=== PATIENT | male | born 1990 | race Asian ===

== ENCOUNTER 2018-12-09 01:40 | Emergency (ER) | payer OTHER ==
[~2018-12-09] VITALS: Ht 172.7 cm; Wt 73.9 kg
--- NOTE | 2018-12-09 01:58 | Emergency Room Report ---
History of Present Illness General Chief Complaint: Headache Source: Patient Present Illness HPI This is a 28-year-old male with no past medical history. He presents with chief complaint of headache. This has been ongoing for over a month. He also has numbness to his arms and now all extremities. No focal deficit. No slurred speech. No nausea no vomiting. No muscle weakness. He had blood work and EKG done 2 weeks ago as an outpatient was negative. No CT head. No MRI or neurology follow-up. Allergies: Coded Allergies: No Known Allergies (Unverified , 12/09/18) Patient History Past Medical History: see triage record, old chart reviewed Past Surgical History: none Pertinent Family History: none Social History: Denies: smoking Immunizations: other Reviewed Nursing Documentation: PMH: Agreed; PSxH: Agreed Nursing Documentation-PMH Past Medical History: No Stated History Review of Systems Eye: Denies: eye pain, blurred vision ENT: Denies: ear pain, nose congestion, throat swelling Respiratory: Denies: cough, shortness of breath Cardiovascular: Denies: chest pain, palpitations Gastrointestinal: Denies: abdominal pain, diarrhea, nausea, vomiting Musculoskeletal: Denies: back pain, joint pain Skin: Denies: rash Neurological: Reports: headache, numbness Endocrine: Denies: increased thirst, increased urine Hematologic/Lymphatic: Denies: easy bruising All Other Systems: negative except mentioned in HPI Physical Exam Vital Signs Date Time Temp Pulse Resp B/P (MAP) Pulse Ox O2 Delivery O2 Flow Rate FiO2 12/09/18 01:41 98.8 87 14 133/89 95 Room Air vitals normal Sp02 EP Interpretation: reviewed, normal General Appearance: well appearing, no apparent distress, alert Head: normocephalic, atraumatic Eyes: bilateral eye PERRL, bilateral eye EOMI ENT: hearing grossly normal, normal pharynx Neck: full range of motion, supple, no meningismus Respiratory: chest non-tender, lungs clear, normal breath sounds Cardiovascular #1: regular rate, rhythm, no murmur Gastrointestinal: normal bowel sounds, non tender, no mass, no organomegaly, no bruit, non-distended Musculoskeletal: back normal, gait/station normal, normal range of motion Psychiatric: mood/affect normal Skin: warm/dry Medical Decision Making Diagnostic Impression: Primary Impression: Headache Qualified Codes: R51 - Headache Additional Impression: Paresthesia ER Course Patient presents with headache and now paresthesia of his extremities. There is no evidence of any bleed or tumor. No evidence of any TIA or CVA. No pathway to indicate this is CVA. This may be multiple sclerosis based on the different neurological complaints. Patient does not appear to be anxious or have psychological issue. No discharge home with follow-up with neurologist for further workup. CT/MRI/US Diagnostic Results CT/MRI/US Diagnostic Results : Imaging Test Ordered: CT head Impression negative per radiologist Last Vital Signs Date Time Temp Pulse Resp B/P (MAP) Pulse Ox O2 Delivery O2 Flow Rate FiO2 12/09/18 01:41 98.8 87 14 133/89 95 Room Air Status: improved Disposition: HOME, SELF-CARE Condition: Stable Scripts Ibuprofen* (MOTRIN*) 600 Mg Tablet 600 MG ORAL THREE TIMES A DAY, #30 TAB 0 Refills Prov: Tank Pollock MD 12/09/18 Patient Instructions: General Headache Without Cause Additional Instructions: Follow-up with your doctor within a week. You will need a referral to see a neurologist. Return if symptom worsen. Tank Pollock MD Dec 09, 2018 01:58
--- NOTE | 2018-12-09 02:00 | NUR ---
ED Nurse Note: Recieved pt from home, here with c/o having intermittent headaches for past month, pt was seen at another facility and states all test were normal but now pt has tingling in all extremities, pt rates headache at 4/10 and aching, denies nausea, vomiting, fevers, cp, sob, or any other complaints or discomforts, pt is ambulatory with steady gait, pt assisted to bed and gowning, will resume care as ordered and closely monitor.
--- NOTE | 2018-12-09 02:30 | NUR ---
ER DISCHARGE NOTE: Patient is cleared to be discharged per ERMD, pt is aox4, on room air, with stable vital signs. pt was given dc and prescription instructions, pt was able to verbalize understanding, pt id band removed without complications. pt is able to ambulate with steady gait. pt took all belongings.
[2018-12-09] MEDS ORDERED: IBUPROFEN600 MG ORAL (02:31)
[2018-12-09 02:35] VITALS: BP 133/89
--- NOTE | 2018-12-09 09:16 | Diagnostic Imaging Report ---
Indications: Headache and tingling over parietal region x1 week Technique: Spiral acquisitions obtained through the brain. Angled axial and coronal 5 x 5 mm slices were reconstructed. Total dose length product 1527.15 mGycm. CTDI vol(s) 70.38 mGy. Dose reduction achieved using automated exposure control Comparison: None. Findings: No acute intracranial hemorrhage or edema, mass effect, nor midline shift. Normal eaton-white differentiation. Normal-sized ventricles and extra-axial CSF spaces. Intact calvarium. Visualized orbits are unremarkable. The sinuses are clear. The mastoids are clear. Impression: Negative This agrees with the preliminary interpretation provided overnight by [facility] service. The CT scanner at [facility] is accredited by the [employer] and the scans are performed using protocols designed to limit radiation exposure to as low as reasonably achievable to attain images of sufficient resolution adequate for diagnostic evaluation.
== END 2018-12-09 02:35 | disposition home or self-care (01) ==
LOC: EMR 02:00
DX: R51 Headache (principal); R20.2 Paresthesia of skin
CPT/HCPCS: 70450; 99284